=== PATIENT | female | born 1950 | race Hispanic/Latino ===

== ENCOUNTER 2019-12-17 12:46 | Emergency (ER) | payer MEDICARE ==
[2019-12-17 13:14] VITALS: BP 117/75
[2019-12-17] MEDS ORDERED: oxyCODONE /ACETAMINOPHEN 5-325MG TAB PO ONE (13:24)
--- NOTE | 2019-12-17 14:12 | Cat Scan Report ---
CT FACIAL BONES WITHOUT CONTRAST HISTORY: Fall with nasal pain and swelling. COMPARISON: None. TECHNIQUE: Axial images of the face were obtained. Coronal reformats were generated. CONTRAST: None. FINDINGS: Facial bones: Bilateral nasal bone fractures with depression of fragments. No other fractures are sherrie ntified. The nasal septum is deviated to the left. Paranasal sinuses: Minimal bilateral ethmoid sinus opacification. Orbits: A single focus of air in the right anteromedial superior orbit. The orbits are otherwise inta ct. The globes are intact. Visualized images of the intracranial space: No significant abnormality. Additional findings: Soft tissue air about the nose. No foreign body. IMPRESSION: 1. Nasal fractures with depression of fragments. 2. Left nasal septal deviation. 3. No other facial fracture. Signer Name: Jose Escoto MD Signed: 12/17/2019 2:08 PM Workstation Name: [id number]
--- NOTE | 2019-12-17 14:15 | Emergency Department Report ---
ED Fall HPI - General Chief Complaint: Fall Stated Complaint: FALL Time Seen by Provider: 12/17/19 13:14 Source: patient, EMS Mode of arrival: Stretcher Limitations: No Limitations - History of Present Illness Initial Comments: Mrs. Maradiaga is a 69 yo female with hx of bilateral knee replacements, restless leg syndrome, cardiac disease who [place]. She has left knee pain stiffness. She has has bruising to the nasal region of her face with facial laceration. Tetanus status is UTD. She is from [place]. She was travelling to [place] to attend a [employer] game. [employer] is her guru mater. No LOC. She does not take anticoagulants. MD Complaint: fall -: Sudden, This afternoon Fall From: down stairs (#) (Several escalator steps) When Fall Occurred: 1 hour [employer] Fall Witnessed: yes, by family Place Fall Occurred: other (Airport escalator) Loss of Consciousness: none Prolonged Down Time?: no Symptoms Prior to Fall: none Location: head, face, other (Left knee) Severity: moderate Context: tripped/slipped - Related Data Previous Rx's Medication Instructions Recorded Last Taken Type oxyCODONE /ACETAMINOPHEN [Percocet 1 tab PO Q4HR PRN #20 tab 12/17/19 Unknown Rx 5/325] Allergies Allergy/AdvReac Type Severity Reaction Status Date / Time No Known Allergies Allergy Unverified 12/17/19 13:14 ED Review of Systems ROS: Stated complaint: FALL Other details as noted in HPI Constitutional: denies: chills, fever, malaise Respiratory: denies: shortness of breath Cardiovascular: denies: chest pain Musculoskeletal: arthralgia Skin: other (Face laceration facial bruising) Neurological: denies: headache, numbness, paresthesias ED Past Medical Hx - Past Medical History Previous Medical History?: Yes Additional medical history: Depression. Restless legs syndrome. non-ischemic cardiomyopathy - Surgical History Past Surgical History?: Yes Additional Surgical History: B/L knee replacement - Social History Smoking Status: Never Smoker Substance Use Type: None - Medications Home Medications: Home Medications Medication Instructions Recorded Confirmed Last Taken Type oxyCODONE /ACETAMINOPHEN [Percocet 1 tab PO Q4HR PRN #20 tab 12/17/19 Unknown Rx 5/325] ED Physical Exam - General Limitations: No Limitations General appearance: alert, in no apparent distress - Head Head exam: Present: normocephalic, other (Diffuse bruising swelling midface nasal region predominantly, 1 cm vertical superficial nasal laceration just medial to the left eye) - Eye Eye exam: Present: normal appearance, PERRL. Absent: scleral icterus, conjunctival injection - ENT ENT exam: Present: mucous membranes moist, other (no septal hematoma) - Neck Neck exam: Present: normal inspection, full ROM - Respiratory Respiratory exam: Present: normal lung sounds bilaterally. Absent: respiratory distress, wheezes, rales, rhonchi - Cardiovascular Cardiovascular Exam: Present: regular rate, normal rhythm, normal heart sounds. Absent: rubs, gallop - GI/Abdominal GI/Abdominal exam: Present: soft, normal bowel sounds. Absent: distended, tenderness, guarding, rebound - Extremities Exam Extremities exam: Present: other (Right knee full range of motion no laceration or bruising, left knee surgical scar full range of motion with difficulty) - Back Exam Back exam: Present: normal inspection - Neurological Exam Neurological exam: Present: alert, oriented X3 - Psychiatric Psychiatric exam: Present: normal affect, normal mood - Skin Skin exam: Present: warm, dry, normal color. Absent: rash ED Course Vital Signs 12/17/19 13:07 Pulse Rate 69 Respiratory 16 Rate Blood Pressure 117/75 O2 Sat by Pulse 98 Oximetry - Laceration /Wound Repair Left Face Wound Location: face Wound Length (cm): 1 Wound's Depth, Shape: superficial Wound Explored: clean Betadine Prep?: No Wound Debrided: minimal Wound Repaired With: Dermabond Layer Closure?: No Sterile Dressing Applied?: No Progress: 2 layers of Dermabond applied with good eversion and hemostasis ED Medical Decision Making - Radiology Data Radiology results: report reviewed CT face: Bilateral nasal bone fractures with depression of fragments, nasal septum is deviated to the left 4 radiographs of the left knee obtained negative study status post knee replacement according to radiology impression - Medical Decision Making Mrs. Maradiaga presents status post fall [place] escalator at the airport. 1. Facial laceration repaired with Dermabond, tetanus status up-to-date 2. bilateral nasal fractures with septal deviation, strongly recommended ENT f/u patient received copy of CT face results 3. Left knee contusion knee radiographs without acute fracture, FROM after pain control and ambulation Critical care attestation.: If time is entered above; I have spent that time in minutes in the direct care of this critically ill patient, excluding procedure time. ED Disposition Clinical Impression: Nasal bone fractures, Contusion of left knee, Facial laceration Disposition: TO HOME OR SELFCARE Is pt being admited?: No Does the pt Need Aspirin: No Condition: Stable Instructions: Nasal Fracture (ED), Skin Adhesive Care (ED) Additional Instructions: Please see a facial surgeon upon return home. Have an amazing time this weekend. It was a pleasure meeting you. Prescriptions: oxyCODONE /ACETAMINOPHEN [Percocet 5/325] 1 tab PO Q4HR PRN #20 tab PRN Reason: Pain , Severe (7-10)
--- NOTE | 2019-12-17 14:22 | XRay Report ---
LEFT KNEE HISTORY: Fall and pain. COMPARISON: None. TECHNIQUE: 4 views of the left knee obtained. FINDINGS: Bones: No fracture or dislocation. Joint spaces: Status post total joint replacement with normal appearance of the prosthesis. No eviden ce of loosening. Soft tissues: No significant abnormality. Additional findings: No joint effusion. IMPRESSION: 1. Negative study status post knee replacement. Signer Name: Jose Escoto MD Signed: 12/17/2019 2:18 PM Workstation Name: [id number]
== END 2019-12-17 14:45 | disposition home or self-care (01) ==
LOC: ED 12:46
DX: S02.2XXA Fracture of nasal bones, initial encounter for closed fracture (principal); S01.81XA Laceration without foreign body of other part of head, initial encounter; S80.02XA Contusion of left knee, initial encounter; F32.9 Major depressive disorder, single episode, unspecified; Z96.653 Presence of artificial knee joint, bilateral; Z79.899 Other long term (current) drug therapy; W10.0XXA Fall (on)(from) escalator, initial encounter; Y93.89 Activity, other specified; Y92.520 Airport as the place of occurrence of the external cause; Y99.8 Other external cause status
CPT/HCPCS: 70486